=== PATIENT | female | born 1995 | race Caucasian/White ===

== ENCOUNTER 2020-11-23 23:57 | Inpatient (IN) | payer MEDICAID, SELFPAY ==
[2020-11-24] VITALS (36 sets, daily range): BP systolic 99–141; BP diastolic 57–97; PULSE 16–100; RESP 16–22; TEMP 35.5–37; O2SAT 96–97; BMI 29.0
[2020-11-24] MEDS: miSOPROStol 100 mcg tablet 25 MCG VAGINAL (00:59)
[2020-11-24] MEDS: dextrose 5%-lactated ringers 1,000 ML 125 ML IV (00:59)
[2020-11-24 01:01] LABS: Basophils % 0.3 %; Eosinophils # 0.1 10^3/uL (0.0-0.8); Eosinophils % 0.8 %; Hematocrit 33.5 % (37.0-47.0); Hemoglobin 10.9 g/dL (11.5-15.3); Lymphocytes # 2.3 10^3/uL (0.8-4.8); Lymphocytes % 32.1 %; Mean Corpuscular HGB Conc 32.5 g/dL (30.0-36.0); Mean Corpuscular Hemoglobin 28.2 pg (28.0-34.0); Mean Corpuscular Volume 86.8 fL (81-99); Mean Platelet Volume 9.6 fL (7.4-10.4); Monocytes # 0.7 10^3/uL (0.2-0.9); Neutrophils # 4.12 10^3/uL (1.8-7.7); Neutrophils % 57.4 %; Nucleated Red Blood Cells % 0 %; Platelet Count 213 10^3/cmm (130-400); Red Blood Count 3.86 10^6/uL (4.1-5.3); Red Cell Distribution Width 13.2 % (12.1-15.1); White Blood Count 7.2 10^3/uL (4.0-10.0)
[2020-11-24 01:51] LABS: Amphetamines Screen Urine Negative (Negative); Barbiturates Screen Urine Negative (Negative); Benzodiazepines Screen Urine Negative (Negative); Cocaine Screen Urine Negative (Negative); Opiate Screen Urine Negative (Negative); PCP Screen Urine Negative (Negative); THC Screen Urine Negative (Negative)
[2020-11-24] MEDS: fentaNYL 50 mcg/mL INJ 2mL IVP ×2 (06:47→07:59)
[2020-11-24] MEDS: oxytocin 30 UNIT/500 ML BAG 600 UNIT IV (08:37)
[2020-11-24] MEDS: lidocaine 2% INJ 20 mL INJECTION (08:40)
--- NOTE | 2020-11-24 09:00 | PM.DELIVERY ---
Delivery Note: Date of delivery: November 24, 2020 this 25-year-old 2 now para 2 female with EDC of 11/22/2020 was admitted late last night for misoprostol cervical ripening for induction. She was given 25 mcg of misoprostol x1 and shortly thereafter began sky much more frequently. She dilated 2 cm dilatation by around 4 AM. At around 650 she dilated to 3 cm after spontaneous rupture membranes and then began moving rapidly. She quickly dilated to complete cervical dilatation and delivered by spontaneous vaginal delivery a healthy, viable female at 08 31. Upon delivery of the head, the mouth and nose were suctioned followed by delivering the left shoulder anteriorly after a rotation of the infant approximately 90 degrees with the left shoulder coming out anteriorly followed by the right shoulder posteriorly. The infant was then suctioned and placed on mother's abdomen. The baby was not breathing well and the umbilical cord was quickly clamped and cut by the infant's father and the infant was handed off to the nurses at the warmer. There was no nuchal cord and the cord had 3 blood vessels. After the infant was handed off to the nurses the vagina and perineum were evaluated and she had a small second-degree midline laceration which was repaired using local anesthesia and Vicryl suture. was a little stunned initially probably partially secondary to mom's dose of fentanyl shortly before and partly because the rapidity of delivery. Apgars were 5 and 8 at 1 and 5 minutes respectively. Baby did receive a little bit of oxygen initially but pinked up nicely and presently is not having any problem with respirations or other issues. There was no other complications and estimated blood loss was approximately 314 mL. Presently baby and mom are doing very well. Pre-Delivery Course: This patient was followed throughout her course but this physician. She had no significant problems during her except for known THC use. She did stop during her . Maternal blood type was O+ with antibody screen negative. Hepatitis B, hepatitis C, RPR and HIV were negative. Rubella was immune and group B strep and Covid were negative. Delivery: Spontaneous vaginal delivery. Post-Delivery Status: Patient is doing well post delivery and will be followed for routine care. A&P Assessment and plan (1) Normal spontaneous vaginal delivery: Patient is doing very well at this time and will be followed for routine care. Adjustments will be made in orders as necessary. Status: Acute Coding Level of Care Code Acute Social Insurance Adviser for Chg Fwd Diagnoses Normal spontaneous vaginal delivery O80
[2020-11-24] MEDS: ibuprofen 800 mg tablet PO ×2 (15:26→20:35)
[2020-11-24] MEDS: benzocaine-menthol 78 gm Canister 1 SPRAY TOPICAL (15:29)
[2020-11-24] MEDS: lanolin oint 7 gm 1 APPLIC TOPICAL (15:29)
[2020-11-24] MEDS: docusate sodium 100 mg Capsule PO (18:17)
[2020-11-24] MEDS: HYDROcodone-acetaminophen 5-325 mg Tablet PO (18:19)
[2020-11-24 21:45] LABS: Hematocrit 31.8 % (37.0-47.0); Hemoglobin 10.5 g/dL (11.5-15.3); Mean Corpuscular Hemoglobin 28.8 pg (28.0-34.0); Mean Corpuscular Volume 87.4 fL (81-99); Mean Platelet Volume 10.2 fL (7.4-10.4); Platelet Count 207 10^3/cmm (130-400); Red Blood Count 3.64 10^6/uL (4.1-5.3); Red Cell Distribution Width 13.2 % (12.1-15.1); White Blood Count 10.1 10^3/uL (4.0-10.0)
[2020-11-25 04:31] VITALS: BP 113/63; PULSE 70; RESP 17; TEMP 36.3; O2SAT 98
--- NOTE | 2020-11-25 06:23 | PC.NURSE ---
Patient resting on couch, father of baby in bed holding infant.
--- NOTE | 2020-11-25 07:05 | PC.NURSE ---
Patient sleeping on couch.
--- NOTE | 2020-11-25 07:25 | PM.OBGYDC ---
Discharge Providers [employer]ED [employer] W[employer] DESIGNER Date of Admission: 11/23/20 23:57 Date of Discharge: 11/25/20 Attending Provider at Admission: Ramsey Brown MD Attending Provider at Discharge: Ramsey Brown MD Primary Care Provider: Ramsey Brown MD Diagnoses at Discharge Discharge Diagnosis (1) Normal spontaneous vaginal delivery: Status: Acute Reason for Visit Reason for Visit: IOL Hospital Course Hospital Course Patient was admitted 1 and half days ago for misoprostol cervical ripening for induction purposes for a postdates . She was able to deliver by spontaneous vaginal delivery fairly rapidly once labor onset began. There were no problems with labor or delivery process. Since delivery, she has done extremely well with just mild lochia and no significant bleeding. Baby is breast-feeding frequently and there are no concerns with that. Patient is ambulating well and tolerating a regular diet and is felt to be stable for discharge this morning. Information Peripartum Data: Infant Delivery Method: Vaginal Physical Exam Const: COMMON NORMALS: no acute distress and healthy appearing Resp: COMMON NORMALS: normal respiratory effort, No retractions and No use of accessory muscles GI: COMMON NORMALS: Soft to palpation (Fundus is firm and below the umbilicus.) PALPATION: Yes Soft to palpation (Fundus is firm and below the umbilicus.) Extremity: COMMON NORMALS: no pedal edema Neuro: COMMON NORMALS: no focal motor deficits and no sensory deficits noted Psych: COMMON NORMALS: mental status grossly normal and cooperative Discharge Data Data Completed and Pending: Labs from last 24 hours 11/24/20 20:30 WBC 10.1 H RBC 3.64 L Hgb 10.5 L Hct 31.8 L MCV 87.4 MCH 28.8 MCHC 33.0 RDW 13.2 Plt Count 207 MPV 10.2 Vitals: Last Vital Signs Temp 97.3 F L 11/25/20 04:31 Pulse 70 11/25/20 04:31 Resp 17 11/25/20 04:31 BP 113/63 11/25/20 04:31 Pulse Ox 98 11/25/20 04:31 Discharge Plan Discharge Patient Disposition: Home Condition: Stable Prescriptions: New docusate sodium [DOK] 100 mg Capsule 100 mg PO BID Qty: 60 RF: 1 ibuprofen 800 mg Tablet 800 mg PO TID Qty: 90 RF: 2 Continued 1 mg Tablet 1 tab PO DAILY RF: 0 Discharge Orders: Discharge Order (Routine); Ordered 11/25/20 Ordered By: Ramsey Brown Referrals: Ramsey Brown MD [Primary Care Provider] - 6 Weeks Discharge Diet: Regular Discharge Activity: Resume usual activity Patient Instructions: Depression (GEN), Vaginal Delivery (DC), Pre-eclampsia and Eclampsia (DC), Bleeding (DC), OB Discharge Report, OB Food/Drug Interaction Guide, Opioid Safety, OB Home Care, OB Proud Parent Packet Discharge Attestations [employer]ED [employer] DESIGNER Time Spent in Discharge Care*: less than 30 min Specific Discharge Activities: Specific discharge activities: educating patient, documenting/other paperwork and evaluating patient/reviewing data Coding Level of Care Code Acute Truck Greaser for Chg Fwd Diagnoses Normal spontaneous vaginal delivery O80
--- NOTE | 2020-11-25 08:31 | PC.NURSE ---
note This mom is reporting baby nursing well. Did have some cluster feeding last night. Discussed feeding patterns and basic of 8 feedings in 24 hours as a minimum. Pt reports mild nipple pain but also fixes the latch when it hurts. She did not want any direct help with . Did address potential risk to baby of her medical marijuana use. She is planning to keep it to a minimum. Contact information has been provided.
[2020-11-25] MEDS: ibuprofen 800 mg tablet PO (08:54)
[2020-11-25] MEDS: prenatal vitamin Capsule 1 CAP PO (08:55)
[2020-11-25] MEDS: docusate sodium 100 mg Capsule PO (08:55)
[2020-11-25 10:00] VITALS: BP 114/74; PULSE 96; RESP 16; TEMP 36.8; O2SAT 96
== END 2020-11-25 10:00 | disposition home or self-care (01) | DRG 807 ==
LOC: OPOB 23:57 → OBGYN 23:57
PROVIDERS: Admitting Provider Family Medicine; PCP Family Medicine; Visit Provider Family Medicine
DX: O48.0 Post-term pregnancy (principal); Z37.0 Single live birth; Z3A.40 40 weeks gestation of pregnancy; O70.1 Second degree perineal laceration during delivery
CPT/HCPCS: 36415; 59025; 59409; 80306; 85025; 85027; 87491; 96374; 96375; J3010